=== PATIENT | male | born 1995 | race Caucasian/White ===

== ENCOUNTER 2022-05-29 20:46 | Emergency (ER) | payer BC ==
[~2022-05-29 20:46] MED LIST: PRILOSEC OTC20 MG PO
[2022-05-29 21:45] LABS: HEMOGLOBIN 17.6 gm/dl (14.0-17.5); RED BLOOD COUNT 6.09 M/UL (4.20-5.50); WHITE BLOOD COUNT 10.6 K/UL (4.5-11.0)
[2022-05-29 22:32] LABS: BUN/CREATININE RATIO 14 (0-10)
[2022-05-30] MEDS ORDERED: FLONASE 0.05% N16 GM (03:30)
[2022-05-30] MEDS ORDERED: IBUPROFEN600 MG PO (03:30)
[2022-05-30] MEDS ORDERED: ZOFRAN 4 MG TAB4 MG PO (03:30)
== END 2022-05-30 03:38 | disposition home or self-care (01) ==
LOC: ER1 20:46
PROVIDERS: Physician Assistant
DX: B27.90 Infectious mononucleosis, unspecified without complication (principal); Z20.822 Contact with and (suspected) exposure to COVID-19
CPT/HCPCS: 70450; 71045; 80053; 83605; 85025; 86403; 87040; 87081; 87880; 96361; 96374; 96375; 99284; J1885; J2405; U0002